=== PATIENT | female | born 1985 ===

== ENCOUNTER 2016-10-27 19:12 | Emergency (ER) | payer MEDICAID ==
[~2016-10-27 19:12] MED LIST: COLACE-DPS100 MG PO; FEOSOL-DPS325 MG PO; MOTRIN-DPS800 MG PO; PRENATAL VIT1 TAB PO; TUMS DPS500 MG PO; TYLENOL DPS325 MG PO
--- NOTE | 2016-10-28 19:07 | ER ---
ADMIT: 10/27/2016 RM/LOC: ER [facility] MR#: [id number] [address] [facility] [address] [place], [place] [address] LUKE WHITTEN, DORI [address] [place] [address] Emergency Room Report SEX: F AGE: 31 : 1985 DATE: 10/27/2016 HISTORY OF PRESENT ILLNESS: The patient is a 31-year-old, who 2 weeks ago had a cholecystectomy. Says everything was going fine, suddenly she about 2 hours ago, developed abdominal discomfort. She took a [place] from someone and she states that the pain kind of the meliorated a bit but not completely. Her last BM this a.m. PHYSICAL EXAMINATION: VITAL SIGNS: Blood pressure 127/65, pulse 109, respirations 22, temp is 98.5, O2 sats 97%. Her weight is 136.1 kilos. GENERAL: She does look like she is pretty distraught. ABDOMEN: Distended, tender. Decreased bowel sounds but she says she had constipation, went to the bathroom, had a bowel movement and had a small amount of blood on the toilet paper. Her UA shows ketones trace, wbc's 18, bacteria, calcium oxalate, leukocytes 2+, protein 1+. Negative test. Her KUB is totally negative. We can see the IUD in place. CLINICAL IMPRESSION: Acute urinary tract infection and abdominal pain. She is going to be given Rocephin and Toradol for hospital and then Pyridium and cephalexin for home. JIGNA Felix / Sean Prakash MD / mackl JOB #: [id number] CC: Sean Prakash MD, Attending Physician
[2016-12-12] MEDS ORDERED: NORCO 7.5-3251 EACH PO (15:58)
[2016-12-12] MEDS ORDERED: ALEVE220 M1 PO (15:58)
[2016-12-12] MEDS ORDERED: NORCO 5-325 TA1 EACH PO (15:59)
[2016-12-12] MEDS ORDERED: BACITRACIN15 G1 TP (16:00)
[2016-12-12] MEDS ORDERED: MIRALAX PACKET17 GM PO (16:00)
== END 2016-10-27 22:10 | disposition home or self-care (01) ==
LOC: ER 19:12
DX: N20.0 Calculus of kidney (principal); N39.0 Urinary tract infection, site not specified; R10.9 Unspecified abdominal pain; F17.210 Nicotine dependence, cigarettes, uncomplicated; Z98.890 Other specified postprocedural states

== ENCOUNTER → 2016-11-08 | Outpatient (CLI) | payer MEDICAID ==
[~2016-11-08] MED LIST changes: +ALEVE220 M1 PO; +BACITRACIN15 G1 TP; +MIRALAX PACKET17 GM PO; +NORCO 5-325 TA1 EACH PO; +NORCO 7.5-3251 EACH PO
== END | disposition home or self-care (01) ==
LOC: RAD.S 10:33
DX: E21.3 Hyperparathyroidism, unspecified (principal)

== ENCOUNTER → 2016-11-13 | Outpatient (CLI) | payer MEDICAID | END | disposition home or self-care (01) | LOC: RAD.S 13:00 | DX: D35.1 Benign neoplasm of parathyroid gland (principal); E04.2 Nontoxic multinodular goiter ==

== ENCOUNTER → 2016-11-28 | Outpatient (CLI) | payer MEDICAID | END | disposition home or self-care (01) | LOC: PTH.S 11:09 | DX: Z01.818 Encounter for other preprocedural examination (principal); E66.9 Obesity, unspecified; F17.200 Nicotine dependence, unspecified, uncomplicated ==

== ENCOUNTER 2016-12-01 13:13 | Emergency (ER) | payer MEDICAID ==
[~2016-12-01 13:13] MED LIST changes: -ALEVE220 M1 PO; -BACITRACIN15 G1 TP; -MIRALAX PACKET17 GM PO; -NORCO 5-325 TA1 EACH PO; -NORCO 7.5-3251 EACH PO
--- NOTE | 2016-12-07 21:34 | ER ---
ADMIT: 12/01/2016 RM/LOC: ER [facility] MR#: [id number] [address] [facility] [address] [place] [id number] DORI QUACH [address] [place] [address] Emergency Room Report SEX: F AGE: 31 : 1985 DATE: 12/01/2016 ADDENDUM: The patient comes into the ER because she knows she has kidney stones. She had a sudden onset of pain to the left flank area and into her left groin. She has had several kidney stones in the past and knows that she has stones sitting in both of her kidneys. On physical exam, she is diaphoretic, grabbing at her left flank area. CT scan showed a 2 mm stone in the proximal UVJ. She did have blood in her urine. IV of normal saline was started. She was given Dilaudid and fluids. I wrote a prescription for [place]. We will have her strain her urine, push fluids, and she is to follow up with Dr. Bradley in the next few days if it is not passed. Please see my T- sheet. JIGNA Anguiano / Emmanuel Ochoa MD / levy JOB #: [id number] CC: Emmanuel Ochoa MD, Attending Physician Kalpesh Bradley MD, Family Physician
[2016-12-12] MEDS ORDERED: ALEVE220 M1 PO (15:58)
[2016-12-12] MEDS ORDERED: NORCO 7.5-3251 EACH PO (15:58)
[2016-12-12] MEDS ORDERED: NORCO 5-325 TA1 EACH PO (15:59)
[2016-12-12] MEDS ORDERED: MIRALAX PACKET17 GM PO (16:00)
[2016-12-12] MEDS ORDERED: BACITRACIN15 G1 TP (16:00)
== END 2016-12-01 15:45 | disposition home or self-care (01) ==
LOC: ER 13:13
DX: N13.2 Hydronephrosis with renal and ureteral calculous obstruction (principal); F17.210 Nicotine dependence, cigarettes, uncomplicated; Z79.899 Other long term (current) drug therapy

== ENCOUNTER 2016-12-10 06:31 | Observation (INO) | payer MEDICAID ==
[~2016-12-10] VITALS: Ht 162.6 cm; Wt 139.3 kg
[2016-12-12] MEDS ORDERED: ALEVE220 M1 PO (15:58)
[2016-12-12] MEDS ORDERED: NORCO 7.5-3251 EACH PO (15:58)
[2016-12-12] MEDS ORDERED: NORCO 5-325 TA1 EACH PO (15:59)
[2016-12-12] MEDS ORDERED: BACITRACIN15 G1 TP (16:00)
[2016-12-12] MEDS ORDERED: MIRALAX PACKET17 GM PO (16:00)
--- NOTE | 2016-12-16 06:52 | OR ---
ADMIT: 12/10/2016 RM/LOC: 626 [facility] MR#: [id number] [address] [facility] [address] [place], [place] [address] DORI QUACH [address] [facility] [address] [place] [address] Operative/Delivery Room Report SEX: F AGE: 31 : 1985 SURGERY DATE: 12/10/2016 SURGEON: Reid Dodge MD PREOPERATIVE DIAGNOSIS: Hypercalcemia with suspected parathyroid adenoma. POSTOPERATIVE DIAGNOSIS: Parathyroid adenoma, left superior. OPERATION: Neck exploration with removal of left superior parathyroid adenoma. ANESTHESIA: General oral endotracheal. BLOOD LOSS: 10 mL. COMPLICATIONS: None. DESCRIPTION OF PROCEDURE: With the patient in supine position under general oral endotracheal anesthesia, her neck was extended exposing the anterior neck. The neck was then prepped with ChloraPrep, allowed 3 minutes to dry. The patient was then draped sterilely. An incision made following natural skin crease low in the neck through the skin and subcutaneous tissue. The subcutaneous tissue was using combination of blunt dissection and electrocautery. The platysma muscle was not identified during the dissection. The dissection was continued to the thyroid isthmus which directly overlaid the trachea in the midline. The left and right thyroid lobes were then exposed by retraction and blunt dissection. There was copious subcutaneous tissue within the field but visualization was adequate with retraction. The left side thyroid lobe was grasped with tenaculum and retracted medially. Dissection was continued directly on the posterior thyroid capsule extending to the inferior and superior thyroid artery and vein. The middle thyroid vein was also identified but left intact. The left inferior parathyroid was identified. It was normal in size and remained intact. The superior parathyroid was then identified superior to the course of the recurrent laryngeal nerve. The nerve itself was not skeletonized during the dissection, and in the region of the left superior parathyroid, a large adenoma was identified consistent with parathyroid adenoma. The rest in the tracheoesophageal groove and was from the surrounding tissues with blunt dissection. The afferent and efferent vessels were treated by clamping and coagulation. The specimen was removed and sent for histologic examination by frozen section to confirm its histologic nature. The wound was irrigated with saline and cleaned with suctioning. Frozen section results identified this as parathyroid tissue. Because of its large size, I suspect that was the culprit in causing her primary hypercalcemia. ADMIT: 12/10/2016 RM/LOC: 626 [facility] MR#: [id number] [address] [address] DORI QUACH [address] [facility] [place] [address] Operative/Delivery Room Report SEX: F AGE: 31 : 1985 At this point, I elected not to explore the right neck due to the body habitus and risks of exploration postoperatively and we will obtain a PTH level in recovery room and calcium level and we will continue to monitor these during her hospital course. Total blood loss for procedure approximately 10 mL in good hemostasis at completion. A Camilo-Byrd drain was placed in the left side of operative field and brought out the right side of strap muscles and incision and wound was closed in layers with 3-0 chromic catgut to the deep tissues in the subcutaneous layer and a running horizontal mattress suture to the skin. The drain was sutured to the skin with silk. She emerged from general anesthesia in the operating room, was extubated in the operating room, and transferred to the recovery room in good condition. Reid Dodge MD/ levy JOB #: [id number] CC: Reid Dodge, Attending Physician FAMILY PHYSICIAN, Family Physician
--- NOTE | 2016-12-16 06:52 | HP ---
ADMIT: 12/10/2016 RM/LOC: [facility] MR#: [id number] [address] [address] DORI QUACH [address] [facility] [address] [place] [id number] Pre-OP History and Physical SEX: F AGE: 31 : 1985 DATE OF SERVICE: HISTORY OF PRESENT ILLNESS: Ms. Mo is 31 years old. She is admitted at this time for neck exploration and removal of suspected parathyroid adenoma. Laboratory studies show hypercalcemia and this appears primary in light of elevated calcium and PTH sestamibi scan; however, is negative for identifiable parathyroid abnormality. A parathyroid ultrasound was performed, which identifies abnormality in the posterior aspect of the left thyroid lobe of 2.1 cm which is hyperechoic, vascular, inconsistent with probable parathyroid adenoma. Surgical removal has been recommended. The rationale, the risks, including risk to recurrent laryngeal nerves, and postop hypocalcemia has been discussed, as well as risks of anesthesia, the resultant surgical scar, risk of bleeding and wound infection. She is in acceptance and admitted at this time for general anesthesia. MEDICATIONS: Medications prior, none. ALLERGIES: NONE. PAST MEDICAL HISTORY: Cholecystectomy. REVIEW OF SYSTEMS: No known lower respiratory, cardiovascular, genitourinary, hematologic, or neurologic disorders. Has history of stomach ulcer. SOCIAL HISTORY: Drinks alcohol occasional, caffeine occasional. Does use tobacco in the form of cigarettes approximately 10 per day. FAMILY HISTORY: No known anesthetic complications. No coagulopathies. PHYSICAL EXAMINATION: GENERAL: A 31-year-old, alert. HEENT: Pupils are equal, no proptosis. Extraocular movements intact. Ear ADMIT: 12/10/2016 RM/LOC: [facility] MR#: [id number] [address] [place] [id number] LUKE MARIA DOLORES DORI [address] [place] [address] Pre-OP History and Physical SEX: F AGE: 31 : 1985 canals, TMs, and middle ears clear. Nose, mouth, pharynx, larynx good symmetry, structure, and function. NECK: No palpable abnormalities. Thyroid gland appears normal. No adenopathy. LUNGS: Clear. HEART: Rhythm regular. EXTREMITIES: Normal. IMPRESSION: Hypercalcemia, appears primary due to parathyroid adenoma, left inferior, as evidenced by ultrasound. PLAN: Neck exploration with removal of parathyroid adenoma. Reid Dodge MD/ levy JOB #: [id number] CC: Reid Dodge, Attending Physician NO FAMILY PHYSICIAN, Family Physician
== END 2016-12-11 10:15 | disposition home or self-care (01) ==
LOC: 6PED 06:55 → WOR 06:55 → 6PED 11:27
PROVIDERS: ADMIT Otolaryngology
PROC: 0GBM0ZZ Excision of Left Superior Parathyroid Gland, Open Approach (ICD-10-PCS; principal; 2016-12-10)
DX: D35.1 Benign neoplasm of parathyroid gland (principal); E83.52 Hypercalcemia; E66.9 Obesity, unspecified; Z79.899 Other long term (current) drug therapy; Z90.49 Acquired absence of other specified parts of digestive tract; Z98.890 Other specified postprocedural states